=== PATIENT | male | born 1975 | race Caucasian/White ===

== ENCOUNTER 2017-01-18 09:11 | Day surgery (SDC) | payer OTHER ==
[~2017-01-18] VITALS: Ht 193 cm; Wt 109.5 kg
[2017-01-18] VITALS (15 sets, daily range): BP systolic 106–131; BP diastolic 47–71; PULSE 63–84; RESP 11–19; Ht 193 cm; Wt 109.5 kg
[~2017-01-18 09:11] MED LIST: CEFAZOLIN 1 GM INJ ONE; GLYCOPYRROLATE 1 MG INJ ONE
--- NOTE | 2017-01-18 11:45 | HPN ---
Date/Time of Note Date/Time of Note DATE: 01/18/17 TIME: 11:44 Interval H&P Admission Note Pt. seen H&P reviewed: No system changes KOJO CHAPPELL MD January 18, 2017 11:45
[2017-01-18] MEDS ORDERED: MIDAZOLAM 1 MG/ML 2 ML INJ ONE ×2 (12:13→12:44)
[2017-01-18] MEDS ORDERED: LIDOCAINE 2% (SDV) 5 ML INJ ONE (12:13)
[2017-01-18] MEDS ORDERED: PROPOFOL 20 ML ONE ×2 (12:13→12:41)
[2017-01-18] MEDS ORDERED: FENTAnyl 50 MCG/ML VIAL ONE (12:15)
[2017-01-18] MEDS ORDERED: THROMBIN 5000 UNIT VIAL ONE (13:08)
[2017-01-18] MEDS ORDERED: ROPIVACAINE 0.5 % 30 ML VIAL ONE (13:08)
[2017-01-18] MEDS ORDERED: CA CHLORIDE 10% 10 ML SYRINGE ONE (13:08)
[2017-01-18] MEDS ORDERED: FENTAnyl 50 MCG/ML VIAL IV PRN ×3 (13:30)
[2017-01-18] MEDS ORDERED: PROCHLORPERAZINE 10 MG INJ IV PRN (13:30)
[2017-01-18] MEDS ORDERED: OXYCODONE/ACETAMINOPHEN (5/325) TAB PO PRN ×4 (13:30→14:00)
[2017-01-18] MEDS ORDERED: MEPERIDINE 25 MG INJ IV PRN (13:30)
[2017-01-18] MEDS ORDERED: HYDROmorphONE (0.2 MG/ML) 10ML SYG IV PRN ×3 (13:30)
[2017-01-18] MEDS ORDERED: DIPHENHYDRAMINE 50 MG INJ IV PRN (13:30)
[2017-01-18] MEDS ORDERED: ONDANSETRON 4 MG INJ IV PRN ×2 (13:30→14:00)
[2017-01-18] MEDS ORDERED: EPHEDrine SULFATE 50 MG/5 ML SYG ONE (13:35)
[2017-01-18] MEDS ORDERED: ESMOLOL 10 ML ONE (13:35)
[2017-01-18] MEDS ORDERED: SOD CHLORIDE 0.9% 1,000 ML IV SCH (13:56)
[2017-01-18] MEDS ORDERED: ONDANSETRON 4 MG INJ ONE (14:00)
[2017-01-18] MEDS ORDERED: morphine 2 MG INJ IV PRN (14:00)
[2017-01-18] MEDS ORDERED: DEXAMETHASONE 4 MG/ML 1 ML INJ ONE (14:00)
[2017-01-18] MEDS ORDERED: METOCLOPRAMIDE 10 MG INJ ONE (14:00)
--- NOTE | 2017-01-18 18:31 | OPR ---
DATE OF OPERATION: 01/18/2017 PREOPERATIVE DIAGNOSES: 1. Rule out recurrent tear of the lateral meniscus, left knee. 2. Rule out a significant chondromalacia of the knee and synovitis. POSTOPERATIVE DIAGNOSES: 1. Recurrent tear lateral meniscus, left knee. 2. Extensive synovitis. 3. 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 4. Chondromalacia grade III of the lateral compartment, slight grade IV. 5. Chondromalacia grade III, small area of grade IV, on the weightbearing surface of the medial fem oral condyle. OPERATION PERFORMED: 1. Arthroscopy of the left knee. 2. Partial lateral meniscectomy. 3. Chondroplasty patellofemoral joint, medial femoral condyle. 4. Chondroplasty of the lateral compartment. 5. Synovectomy and synovial biopsies. 6. Insertion of platelet rich plasma into the knee. SURGEON: Kojo Hood MD WIND TUNNEL TECHNICIAN: Susan Marin MD ANESTHESIA: General. TOURNIQUET TIME: Zero. DESCRIPTION OF PROCEDURE: The patient taken operating room placed in supine position. Satisfactory general anesthesia was administered, 2 grams Ancef given intravenously. Left knee was prepped and draped in the usual manner. Exam under anesthesia revealed a large effusion. Range of motion 0 and 130 degrees with mild patellofemoral crepitus. Knee was stable AP drawer, Michael 1+, pivot shift was negative. No varus-valgus instability. Standard arthroscopic portals were used and the knee was drained of all fluid. New fluid was placed . There was chondromalacia grade II to III diffusely of the patella, particularly centrally and lat erally. There was a large divot in the trochlear groove down to exposed bone with some grade II to III chondromalacia of the lateral femoral condyle, more superiorly. There were some with rimming os teophytes on the medial femoral condyle. Lateral gutter had synovitis, as did the medial gutter. L ateral compartment was entered. There recurrent horizontal cleavage tear of the mid zone of the lat eral meniscus extending slightly posteriorly and anteriorly. There was grade III chondromalacia and small areas of grade 4 chondromalacia in the lateral compartment. The anterior and posterior cruci ates were intact at origins and insertions. Medial compartment was entered. Medial meniscus looked smooth and glistening, looked intact without a tear. There was a chondromalacia with flap down to exposed bone in a small area on the weightbearing surface of the medial femoral condyle. Probe inse rted into the medial portal. The tear was palpated using multiple probes. No tears were seen. The arthroscope maneuvered posteromedially and no other abnormalities were seen. The flap was palpated . It was fairly significant on the weightbearing surface. It was removed with a grasper and debrid ed with a shaver. Chondroplasty performed along the medial compartment. The anterior and posterior cruciates were palpated and were intact. In the lateral compartment, the lateral meniscus tear was evaluated. Using curved and straight baskets, the horizontal cleavage component was cut back. The inferior rim was removed. Superior labrum was cut back a little bit. We had to remove a little bi t of lateral meniscus intact from the popliteal hiatus to prevent loss of hoop stresses. It was the n contoured posteriorly and anteriorly. Shaver was used to smooth and contour the edges further and remove all loose debris. Chondroplasty performed along the lateral compartment once a stable menis timothy rim had been achieved. Multiple synovial biopsies were done in the suprapatellar pouch and sent for analysis. A synovectomy was not done because the amount of bleeding it would cause and the pro blems the patient has been having recurrent effusions. We did not think it would serve any purpose. A chondroplasty grossly was done along the trochlear groove and along the patella. The knee was i rrigated clear. Wounds were closed with 3-0 black nylon. Steri-Strips were applied. During the procedure, blood was sterilely aspirated and then spun down and the PRP, 10 mL of platele t rich plasma, was activated with calcium chloride and then injected into the knee. A compression d ressing was then applied as well as an ice pack and patient brought to recovery in stable condition. Interprocedure sponge and needle count was correct. The patient tolerated procedure well. Dictated By: KOJO ESPINOZA/AMY Conf#: [id number] DID#: [id number]
--- NOTE | 2017-01-22 03:52 | OPR ---
DATE OF OPERATION: 01/18/2017 ADDENDUM DERRICK BUILDER ORTHOPEDIC SURGEON: During the procedure, an pier master assistant orthopedic surgeon was used at my request. The pier master assistant helped with manipulating the arthroscope, manipulating and distracting the k nee, and inserting the platelet rich plasma. Without a skilled pier master assistant, this would have been diff icult; therefore, should be compensated and paid appropriately. Dictated By: KOJO CHAPPELL MD RF/AMY Conf#: [id number] DID#: [id number]
== END 2017-01-18 15:50 | disposition home or self-care (01) ==
LOC: SDS 09:11
PROVIDERS: ATTEND Orthopaedic Surgery
DX: M23.201 Derangement of unspecified lateral meniscus due to old tear or injury, left knee (principal); M65.862 Other synovitis and tenosynovitis, left lower leg; M22.42 Chondromalacia patellae, left knee
CPT/HCPCS: 29881; 86999; J0690; J1100; J2250; J2405; J2765; J3010; J2795

== ENCOUNTER → 2017-07-21 | Outpatient (CLI) | payer OTHER | END | disposition home or self-care (01) | LOC: CRE 13:11 | PROVIDERS: ATTEND Internal Medicine Cardiovascular Disease | DX: Z95.2 Presence of prosthetic heart valve (principal) | CPT/HCPCS: 93797 ==